=== PATIENT | male | born 1975 | race Caucasian/White ===

== ENCOUNTER 2018-02-13 06:17 | Day surgery (SDC) | payer OTHER ==
[2018-02-13 07:20] LABS: ADD MAN DIFF? NO
[2018-02-13 07:23] LABS: BASOPHILS % 0.7 % (0.0-2.0); EOSINOPHILS # 0.2 10^3/ul (0.0-0.5); EOSINOPHILS % 2.4 % (0.0-7.0); LYMPHOCYTES # 1.6 10^3/ul (0.8-2.9); LYMPHOCYTES % 26.1 % (15.0-51.0); MEAN CORPUSCULAR HEMOGLOBIN 33.6 pg (29.0-33.0); MEAN CORPUSCULAR HGB CONC 34.3 g/dl (32.0-37.0); MEAN PLATELET VOLUME 9.5 fl (7.4-10.4); MONOCYTES % 16.6 % (0.0-11.0); NEUTROPHIL # 3.3 10^3/ul (1.6-7.5); NEUTROPHILS % 53.9 % (39.0-77.0); PLATELET COUNT 224 10^3/UL (140-415); RED BLOOD COUNT 3.57 10^6/ul (4.70-6.10); RED CELL DISTRIBUTION WIDTH 13.6 % (11.5-14.5)
[2018-02-13 07:23] LABS: WHITE BLOOD COUNT 6.1 10^3/ul (4.8-10.8)
[2018-02-13] MEDS ORDERED: GELATIN SIZE 100 SPONGE (07:30)
[2018-02-13] MEDS ORDERED: THROMBIN 5000 UNIT VIAL (07:30)
[2018-02-13 07:52] LABS: ALANINE AMINOTRANSFERASE 23 IU/L (13-69); ALBUMIN 4.3 g/dl (3.3-4.9); ALBUMIN/GLOBULIN RATIO 1.26; ALKALINE PHOSPHATASE 67 IU/L (42-121); ANION GAP 18 (8-16); ASPARTATE AMINO TRANSFERASE 26 IU/L (15-46); BILIRUBIN,INDIRECT 0.2 mg/dl (0-1.1); BILIRUBIN,TOTAL 0.2 mg/dl (0.2-1.3); CARBON DIOXIDE 29 mmol/L (21-31); CHLORIDE 96 mmol/L (97-110); GLUCOSE 98 mg/dl (70-220); TOTAL PROTEIN 7.7 g/dl (6.1-8.1)
[2018-02-13 07:53] LABS: INR 0.95; PROTIME 12.8 Sec (11.9-14.9)
[2018-02-13 07:55] LABS: BLOOD UREA NITROGEN 23 mg/dl (7-20); CALCIUM 9.5 mg/dl (8.4-10.2); CREATININE 4.68 mg/dl (0.61-1.24); POTASSIUM 3.7 mmol/L (3.5-5.1); SODIUM 139 mmol/L (135-144)
[2018-02-13] MEDS ORDERED: PROPOFOL 20 ML ×3 (07:55→09:13)
[2018-02-13] MEDS ORDERED: MIDAZOLAM 1 MG/ML 2 ML INJ (07:55)
[2018-02-13] MEDS ORDERED: METOCLOPRAMIDE 10 MG INJ (07:55)
[2018-02-13] MEDS ORDERED: ROPIVACAINE 0.2% 20 ML VIAL (07:55)
[2018-02-13] MEDS ORDERED: FENTAnyl 50 MCG/ML VIAL ×2 (07:55→08:44)
[2018-02-13 08:05] LABS: PARTIAL THROMBOPLASTIN TIME 35.7 Sec (25.0-35.0)
[2018-02-13] MEDS ORDERED: HYDROmorphONE (0.2 MG/ML) 10ML SYG IV ×3 (08:30)
[2018-02-13] MEDS ORDERED: DIPHENHYDRAMINE 50 MG INJ IV (08:30)
[2018-02-13] MEDS ORDERED: MEPERIDINE 25 MG INJ IV (08:30)
[2018-02-13] MEDS ORDERED: OXYCODONE/ACETAMINOPHEN (5/325) TAB PO ×2 (08:30)
[2018-02-13] MEDS ORDERED: EPHEDrine SULFATE 50 MG/5 ML SYG IV (08:30)
[2018-02-13] MEDS ORDERED: BUPIVACAINE 0.5% (SDV) 30 ML INJ (08:30)
[2018-02-13] MEDS ORDERED: hydrALAzine 20 MG INJ IV (08:30)
[2018-02-13] MEDS ORDERED: LABETALOL HCL 20MG INJ IV (08:30)
[2018-02-13] MEDS ORDERED: HYDROmorphONE 2 MG/ML SYG (08:43)
[2018-02-13] MEDS: LIDOCAINE 1% (MPF) 30 ML INJ (08:58)
[2018-02-13] MEDS: HEPARIN 1000 UNITS/ML 10 ML INJ (08:59)
[2018-02-13] MEDS ORDERED: CEFAZOLIN 1 GM INJ (09:07)
[2018-02-13] MEDS ORDERED: ONDANSETRON 4 MG INJ (09:08)
[2018-02-13] MEDS ORDERED: EPHEDrine SULFATE 50 MG/5 ML SYG ×2 (09:12→09:45)
[2018-02-13] MEDS ORDERED: PAPAVERINE 60 MG INJ (09:45)
[2018-02-13] MEDS: PAPAVERINE 60 MG INJ IRR (09:51)
[2018-02-13] MEDS: BUPIVACAINE 0.5% 30 ML VIAL INJ (09:56)
[2018-02-13] MEDS: THROMBIN 5000 UNIT VIAL TOP (09:56)
[2018-02-13] MEDS: ONDANSETRON 4 MG INJ IV (10:52)
== END 2018-02-13 12:42 | disposition home or self-care (01) ==
LOC: SDS 06:17
DX: I12.0 Hypertensive chronic kidney disease with stage 5 chronic kidney disease or end stage renal disease (principal); N18.6 End stage renal disease
CPT/HCPCS: 36821; 71045; 80053; 85025; 85610; 85730; 93005